=== PATIENT | male | born 1950 ===

== ENCOUNTER 2019-04-07 19:01 | Emergency (ER) | payer OTHER ==
[~2019-04-07] VITALS: Ht 190.5 cm; Wt 73.5 kg
[~2019-04-07 19:01] MED LIST: ADVAIR 2501 DISK W/1 IH; PRIMACOR IV; PROTONIX40 MG PO; VITAMIN A10000 UNI1 PO; VITAMIN E100 UNI1 PO; ZYRTEC5 MG PO
[2019-04-07] MEDS ORDERED: BREO ELLIPTA 21 EACH IH (19:32)
[2019-04-07] MEDS ORDERED: PREVACID30 MG PO (19:32)
[2019-04-07] MEDS ORDERED: SINGULAIR 10MG10 MG PO (19:33)
[2019-04-07] MEDS ORDERED: VIAGRA100 MG PO (19:33)
[2019-04-07] MEDS ORDERED: ZYRTEC10 M3 PO (19:33)
[2019-04-07] MEDS ORDERED: FLONASE16 GM NS (19:34)
== END 2019-04-07 22:44 | disposition home or self-care (01) ==
LOC: ER 19:01
DX: S00.83XA Contusion of other part of head, initial encounter (principal); R51 Headache